=== PATIENT | female | born 1995 | race Two or more races ===

== ENCOUNTER 2021-07-22 17:49 | Emergency (ER) | payer OTHER ==
[~2021-07-22] VITALS: Ht 167.6 cm; Wt 86.2 kg
[2021-07-22] MEDS ORDERED: PERMETHRIN60 GM TOP (18:42)
[2021-07-22] MEDS ORDERED: IVERMECTIN3 MG PO (18:42)
== END 2021-07-22 19:06 ==
LOC: ER 17:49
DX: B86 Scabies (principal)